=== PATIENT | female | born 1950 | race Caucasian/White ===

== ENCOUNTER 2023-08-20 13:19 | Emergency (ER) | payer BC, SELFPAY ==
[2023-08-20 13:29] VITALS: BP 129/74
[2023-08-20 13:51] LABS: Urine Albumin 3+ (Neg - Trace); Urine Bilirubin 1+ (Negative); Urine Character Bloody (Clear); Urine Color Red; Urine Glucose Negative (Negative); Urine Ketone 1+ (Negative); Urine Leukocyte Trace (Negative); Urine Nitrite Negative (Negative); Urine Occult Blood 4+ (Negative); Urine Urobilinogen 1+ (Neg - 1+)
[2023-08-20 13:59] LABS: Urine Red Blood Cell >100 /HPF (0-2)
--- NOTE | 2023-08-20 17:57 | ED.GENMED ---
History of Present Illness
General
Chief Complaint: Urinary Symptoms
Source: patient
Exam Limitations: none
Time Seen by Provider: 08/20/23 17:19
Nursing documentation reviewed up to this point in time: agreed with
Travel History
Have you had any contact with someone who has COVID-19?: No
Do you have any symptoms of coronavirus? Fever > 100 degrees, chills, cough, shortness of breath, sore throat, loss of taste or smell, muscle aches, or headache?: No
History of Present Illness
History of Present Illness:
73-year-old female with hx kidney stones states she had an episode today of non painful bloody urine. She denies fever or chills. Denies abdominal pain. Denies flank pain.
Past History
Past History
ED Past Medical History: Other (cataracts, kidney stones)
ED Past Surgical History: Gynecological (hysterectomy) and Other (Cataract surgery)
Social History
Tobacco: Non-smoker
Alcohol: Occasional
Drug: None
Personal:
Living: with family
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
Family History
Family History: Other
Review of Systems
Review of Systems
Allergies reviewed?: Yes
All Other Systems: ROS reviewed and negative except as documented in HPI and ROS
Constitutional: Denies fever or chills
Cardiac: Denies chest pain
ABD/GI: Denies abdominal pain, nausea or vomiting
: Reports bleeding (episode hematuria); Denies dysuria, frequency, flank pain, difficulty voiding or urgency
Musculoskeletal: Reports no symptoms
Skin: Reports no symptoms
Neurological: Reports no symptoms
Phy Exam
Physical Exam
Physical Exam:
GENERAL: No acute distress. A&Ox3.
CONSTITUTIONAL: Afebrile.
RESPIRATORY: Regular respirations, nonlabored, lungs clear.
CARDIOVASCULAR: Regular rate and rhythm, no murmurs, no rubs.
GI: Soft, nontender, normal BS
MUSCULOSKELETAL: Moves with ease. Well perfused.
SKIN: Warm, dry, pink
PSYCH: Normal mood and affect. Well kept, interactive and appropriate
NEUROLOGIC: Awake, alert and oriented. No focal neurological deficits
Course
Orders/Labs/Results
Orders:
Orders
08/20/23 13:40
Urinalysis Reflex To Culture Urgent
Date Specimen was Collected: 08/20/23
Time Specimen was Collected: 13:32
Urine Microscopic Reflex Cult Urgent
Abnormal Lab Results
08/20/23
13:40
Urine Ketones 1+ A
(Negative)
Ur Occult Blood Reflex 4+ A
(Negative)
Urine Bilirubin 1+ A
(Negative)
Leukocyte Esterase Rfl Trace A
(Negative)
Urine RBC >100 A /HPF
(0-2)
Urine Albumin (Reflex) 3+ A
(Neg - Trace)
Vital Signs
Initial and Last Documented VS:
Initial Vital Signs
Temp Pulse Resp BP Pulse Ox
97.8 F 92 16 129/74 98
08/20/23 13:29 08/20/23 13:29 08/20/23 13:29 08/20/23 13:29 08/20/23 13:29
Last Documented Vital Signs
Temp Pulse Resp BP Pulse Ox
97.8 F 89 17 125/72 97
08/20/23 13:29 08/20/23 18:05 08/20/23 18:05 08/20/23 18:05 08/20/23 18:05
MDM/Problems Addressed
Differential Diagnosis Includes:
Kidney stone, hemorrhagic cystitis, hematuria, malignancy
MDM/Problems Addressed:
73-year-old female with hx kidney stones states she had an episode today of non painful bloody urine. She denies fever or chills. Denies abdominal pain. Denies flank pain.
Afebrile
08/20/2023 1804 PM
Urinalysis reveals +4 occult blood and greater than 100 RBCs, no WBCs/sign of infection
Patient's exam is unremarkable abdomen benign, flanks nontender, has urinated clear yellow urine since arrival. Considered CT to r/o stone but pt asymptomatic so not indicated at this time.
Patient has seen Urology Dr. Davenport in the past for kidney stones, she will follow-up with him
*Critical Care Note
Total Time (30-74mins, 75-104mins- exclusive of procedures): Not Applicable
ED Attending Note
-
Portions of this chart may have been created with voice recognition software.� Occasional wrong word or��sound alike� substitutions may have occurred due to the inherent limitations of voice recognition software.
Discharge Plan
Departure
Patient Disposition: Home (Routine Discharge)
Date of Disposition: 08/20/23
Time of Disposition: 17:57
Patient with high blood pressure during this ER visit?: No
Condition: Good
Discharge Problem:
Hematuria
Instructions: Blood in the Urine (Hematuria), Adult (DC)
Prescriptions:
No Action
multivitamin Tablet
1 tab PO DAILY
Referrals:
Bautista Davenport MD [Active] - Next open appointment
UNKNOWN - PT DOES,NOT KNOW [Unknown Provider] -
Activity Restrictions/Additional Instructions:
As we discussed, if you have any further bleeding, call and make a urology appointment as they may want to look up into the bladder.
Inform Edenilson Tovar of today's visit, she may want you to see Urology anyway.
I see no sign of infection so no antibiotic is indicated at this time.
Interventions
Interventions:
*Risk Screen - Suicide Last Done: 08/20/23 13:31
*General Assessment Last Done: 08/20/23 13:31
*Neglect/Abuse Screening Last Done: 08/20/23 13:31
ED- Fall Risk Assessment Last Done: 08/20/23 17:56
*Nursing Disposition Last Done: 08/20/23 18:05
ED-Female Genitourinary Assessment Last Done: 08/20/23 17:56
Discharge Date and Time
Discharge Date/Time: 08/20/23 18:06
[2023-08-20 18:05] VITALS: BP 125/72
== END 2023-08-20 18:06 | disposition home or self-care (01) ==
LOC: EMR 13:19
PROVIDERS: Student in an Organized Health Care Education/Training Program; EMERGENCY PHYSICIAN Emergency Medicine; FAMILY PHYSICIAN Nurse Practitioner Adult Health
DX: R31.9 Hematuria, unspecified (principal); Z87.442 Personal history of urinary calculi
CPT/HCPCS: 99282; 81003; 81015

== ENCOUNTER → 2024-06-12 16:11 | Outpatient (REF) | payer BC, SELFPAY | LOC: WDC 16:11 | PROVIDERS: ATTENDING PHYSICIAN Nurse Practitioner Adult Health | DX: Z12.31 Encounter for screening mammogram for malignant neoplasm of breast (principal) | CPT/HCPCS: 77063; 77067 ==